=== PATIENT | male | born 1950 | race Caucasian/White ===

== ENCOUNTER 2024-03-01 15:56 | Inpatient (IN) | payer MEDICARE ==
[2024-03-01] MEDS ORDERED: Acetaminophen 325 MG TAB PO PRN (17:08)
[2024-03-01] MEDS ORDERED: Calcium Carbonate 500 MG ChewTAB PO PRN (17:08)
[2024-03-01] MEDS ORDERED: Senokot S 8.6-50 MG TAB PO PRN (17:08)
[2024-03-01] MEDS ORDERED: Ondansetron PF 4 MG/2 ML Vial IVP PRN (17:08)
[2024-03-01] MEDS ORDERED: Lorazepam 2 MG/ML VIAL SLOW IVP PRN (17:08)
[2024-03-01] MEDS ORDERED: Insulin Lispro 100 UNIT/ML 10 ML VIAL SC PRN ×2 (17:12)
[2024-03-01] MEDS ORDERED: Dextrose 5% in Water 1,000 ML IV PRN (17:12)
[2024-03-01] MEDS ORDERED: Dextrose 50% Abboject 50 ML SYRINGE SLOW IVP PRN (17:12)
[2024-03-01] MEDS ORDERED: Glucagon 1 MG/ML KIT IM PRN (17:12)
[2024-03-01 17:40] VITALS: BMI 23.7
[2024-03-01] MEDS: Aspirin Chewable 81 MG TAB PO SCH (21:48)
[2024-03-01] MEDS: Atorvastatin Calcium 40 MG TAB PO SCH (21:48)
[2024-03-01] MEDS: levETIRAcetam 500 MG (5 mL) VIAL SLOW IVP SCH (21:48)
[2024-03-01] MEDS: Gabapentin 300 MG CAP PO SCH (21:49)
[2024-03-01] MEDS: Sodium Chloride 0.9% 1,000 ML IV SCH (21:50)
[2024-03-02 04:37] LABS: #Basophils 0.05 10x3/uL (0.0-0.2); %Basophils 0.5 % (0.0-1.0); %Eosinophils 1.6 % (0.0-10.0); %Lymphocytes 21.3 % (21.0-51.0); %Monocytes 10.2 % (0.0-10.0); %Neutrophils 65.9 % (42.0-75.0); Hematocrit 33.1 % (42.0-52.0); Hemoglobin 11.3 g/dL (14.0-18.0); Mean Corpuscular HGB CONC 34.1 g/dL (32.0-36.0); Mean Corpuscular Hemoglobin 29.8 pg (27.0-31.0); Mean Corpuscular Volume 87.3 fL (78.0-98.0); Mean Platelet Volume 8.4 fL (7.4-10.4); Platelet Count 237 10x3/uL (130-400); RBC Distribution Width 13.4 % (11.5-14.5); Red Blood Cell (RBC) Count 3.79 mill/uL (4.70-6.10)
[2024-03-02 05:03] LABS: ALT (SGPT) 18 U/L (8-55); AST (SGOT) 16 U/L (5-34); Alkaline Phosphatase 65 U/L (40-110); Anion Gap 13 mmol/L (10-20); BUN (Urea Nitrogen) 19 mg/dL (8.4-25.7); Bilirubin, Total 0.5 mg/dL (0.2-1.2); Calc. Creatinine Clearance 81 mL/min (70-130); Calcium 8.7 mg/dL (7.8-10.44); Carbon Dioxide 21 mmol/L (23-31); Chloride 108 mmol/L (98-107); Estimated GFR 92; Globulin 2.4 g/dL (2.4-3.5); Glucose 89 mg/dL (83-110); Potassium 4.1 mmol/L (3.5-5.1); Protein, Total 5.4 g/dL (5.8-8.1); Sodium 138 mmol/L (136-145)
[2024-03-02] MEDS: Enoxaparin 40 MG (0.4 mL) SYRINGE SC SCH (11:43)
[2024-03-02] MEDS: levETIRAcetam 500 MG TAB PO SCH ×2 (15:30→21:57)
[2024-03-03 16:28] VITALS: BP 119/65; TEMP 98.3
== END 2024-03-03 17:18 | disposition home or self-care (01) | DRG 101 ==
LOC: 2SE 16:59 → INTOOBSV 16:59 → OBSVTOIN 03-02 17:28
PROVIDERS: ADMIT Internal Medicine; ATTEND Internal Medicine
PROC: 4A00X4Z Measurement of Central Nervous Electrical Activity, External Approach (ICD-10-PCS; principal; 2024-03-02)
DX: R56.9 Unspecified convulsions (principal); E87.1 Hypo-osmolality and hyponatremia; I10 Essential (primary) hypertension; E78.5 Hyperlipidemia, unspecified; E11.9 Type 2 diabetes mellitus without complications; L97.519 Non-pressure chronic ulcer of other part of right foot with unspecified severity; F03.90 Unspecified dementia, unspecified severity, without behavioral disturbance, psychotic disturbance, mood disturbance, and anxiety
CPT/HCPCS: 36415; 70450; 80053; 84146; 84443; 85025; 95700; 95711; 95819; 96372; 96374; G0378; J1650; J1953; J7030